=== PATIENT | female | born 1935 | race Caucasian/White ===

== ENCOUNTER → 2016-06-15 | Outpatient (CLI) | payer OTHER ==
[2016-06-15 14:38] LABS: CREATININE 1.1 mg/dL (0.6-1.0)
== END ==
LOC: MRI 05-16 09:25
PROVIDERS: Internal Medicine Endocrinology, Diabetes & Metabolism
DX: M81.0 Age-related osteoporosis without current pathological fracture (principal); M47.897 Other spondylosis, lumbosacral region; M54.5 Low back pain